=== PATIENT | male | born 1945 | race African-American/Black ===

== ENCOUNTER → 2017-04-05 | Day surgery (SDC) | payer MEDICARE, OTHER ==
[~2017-04-05] MED LIST: ACIPHEX20 MG PO; ASPIRIN PO; CALCIUM 500 +1 EAC2 PO; DETROL PO; EXFORGE; FEOSOL PO; HYDRALAZINE HC100 MG PO; LEVAMIR; LO-DOSE ASPIRIN81 M1 PO; NORVASC10 MG PO; PRAVACHOL PO; VITAMIN D2000 UNIT PO; ZOCOR PO; ZYLOPRIM PO; ZYLOPRIM100 MG PO; ZYRTEC PO
--- NOTE | ~2017-04-05 | OR ---
Unit #: [id number] #: [id number] Patient: COLBY WISE [id number] [address] [address] [id number] MR#: [id number] NAME: COLBY WISE. ROOM: Date of Procedure: 04/05/2017 Admission Date: 04/05/2017 Surgeon: Josse Thorne M.D. : 1945 Attending Physician: Josse Thorne M.D. Primary Care Physician: Barbi Downey Aprn OPERATIVE REPORT ATTENDING PHYSICIAN Barbi Downey APRN. PREOPERATIVE DIAGNOSES Iron deficiency anemia. In addition, the patient has personal history of colon polyps. PROCEDURES PERFORMED Colonoscopy and polypectomy. POSTOPERATIVE DIAGNOSES 1. The patient had multiple polyps. There were total of seven polyps, two in the transverse colon; one each in the cecum, splenic flexure, descending colon, sigmoid colon, and rectum. All the polyps were removed using snare polypectomy, retrieved and sent for histology. 2. The polyps ranged in size from 5 mm to a centimeter each. 3. The patient had moderate and diffuse pandiverticulosis. 4. Medium-sized external hemorrhoids. 5. Rest of the examination up to cecum was normal. The quality of the prep was excellent. RECOMMENDATIONS 1. Follow up the results of polyp histology. 2. We will obtain the patient's iron studies and hemoglobin today and follow up in the office in 3 months' time. SEDATION USED MAC. DESCRIPTION OF PROCEDURE Following detailed explanation of the potential risks and complications of a colonoscopy, namely perforation, bleeding, and complication related to sedation, the patient was brought to GI lab and laid in the left lateral decubitus position. A digital rectal examination was performed, which was normal. Lubricated tip of the Olympus video colonoscope was inserted through the anus and advanced under direct vision. The scope was advanced past rectosigmoid into descending colon. Extreme caution was used in navigating this area, because of severe diverticulosis involving this area. Once the scope was advanced past the descending colon, proximal insertion was easier; however; total intubation was impossible. As a result, the scope was withdrawn and switched with a therapeutic Unit #: [id number] #: [id number] Patient: COLBY WISE colonoscope. At this time, the scope tip was then navigated all the way up to cecum with visualization of the ileocecal valve and the appendiceal orifice. The patient had to be turn in the supine position during examination for total intubation. The quality of the prep was excellent. Multiple polyps were seen both during antegrade examination and during withdrawal phase examination, and were thus removed during both maneuvers. There were total of seven polyps, two in the transverse colon, one in the cecum, one in the splenic flexure, one in descending colon, one in the sigmoid, and one in the rectum. The polyps ranged in size from 5 mm to a centimeter each. Excellent hemostasis was achieved and photodocumentation was obtained. The patient also had extensive pandiverticulosis. In addition, there were medium-sized external hemorrhoids seen at the anal verge. The scope was then withdrawn and the patient returned to recovery area. He tolerated the procedure without any postprocedure complications. Dictated by... Brent Jackson/sameer TD: 04/05/2017 15:53 JOB #: [id number] CC: Barbi Downey Aprn OPERATIVE REPORT Page 1 of 1 X Josse Thorne MD PROCEDURE OPERATIVE NOTE
[2017-04-05 10:21] LABS: EOSINOPHIL# 0.1 X10e3 (0-0.7); EOSINOPHIL% 1.4 % (0.0-7.0); HEMATOCRIT 23.7 % (38.0-50.0); HEMOGLOBIN 7.9 gm/dL (13.0-16.0); LYMPHOCYTE# 0.6 X10e3 (1.0-3.5); LYMPHOCYTE% 11.4 % (17.0-45.0); MEAN CORPUSCULAR HEMOGLOBIN 29.4 PG (28-34); MEAN CORPUSCULAR HGB CONC 33.4 g/dL (30-36); MEAN PLATELET VOLUME 9.4 FL (6.5-11.5); MONOCYTE# 0.4 X10e3 (0-1.0); MONOCYTE% 7.1 % (3.0-12.0); NEUTROPHIL# 3.9 X10e3 (1.5-7.1); NEUTROPHIL% 79.1 % (40-75); PLATELET COUNT 119 X10e3 (140-420); RED BLOOD COUNT 2.69 X10e (3.90-5.60); RED CELL DISTRIBUTION WIDTH 15.6 % (11.0-15.5); WHITE BLOOD COUNT 4.9 X10e3 (4.0-10.5)
[2017-04-05 10:23] LABS: DIFF IND YES
[2017-04-05 11:03] LABS: PLATELET ESTIMATE NORMAL (NORMAL)
[2017-04-05 11:07] LABS: POIKILOCYTOSIS SL
[2017-04-05 11:08] LABS: ACANTHOCYTES PRESENT; ANISOCYTOSIS SL; MICROCYTOSIS SL
[2017-04-05 11:09] LABS: BUN/CREATININE RATIO 8.04; CALCIUM SERUM 8.4 mg/dL (8.4-10.2); CREATININE SERUM 8.2 mg/dL (0.6-1.4); GLOM FILT RATE Estimated 6.8 mL/min (>60)
[2017-04-05 11:16] LABS: POTASSIUM 5.6 mmol/L (3.5-5.1)
== END | disposition home or self-care (01) ==
LOC: COPS 06:08
PROVIDERS: Internal Medicine Gastroenterology
DX: D12.0 Benign neoplasm of cecum (principal); D12.3 Benign neoplasm of transverse colon; D12.4 Benign neoplasm of descending colon; D12.5 Benign neoplasm of sigmoid colon; D12.8 Benign neoplasm of rectum; D50.0 Iron deficiency anemia secondary to blood loss (chronic); K57.30 Diverticulosis of large intestine without perforation or abscess without bleeding; K64.4 Residual hemorrhoidal skin tags; K21.9 Gastro-esophageal reflux disease without esophagitis; E11.9 Type 2 diabetes mellitus without complications; I12.9 Hypertensive chronic kidney disease with stage 1 through stage 4 chronic kidney disease, or unspecified chronic kidney disease; N18.9 Chronic kidney disease, unspecified; Z85.46 Personal history of malignant neoplasm of prostate; Z86.010 Personal history of colon polyps; Z79.4 Long term (current) use of insulin; Z79.82 Long term (current) use of aspirin; Z98.890 Other specified postprocedural states
CPT/HCPCS: 80048; 82728; 82947; 83540; 83550; 85025; 88305